=== PATIENT | female | born 1970 | race African-American/Black ===

== ENCOUNTER 2025-10-29 07:29 | Outpatient (CLI) | payer OTHER, SELFPAY ==
--- NOTE | ~2025-10-29 | MR_ITS ---
EXAMINATION: MR cervical spine wo con DATE: 10/29/2025 08:06 INDICATION: Neck pain. TECHNIQUE: Magnetic resonance imaging (MRI) of the cervical spine was performed without intravenous contrast. COMPARISON: Cervical spine radiographs 10/29/2025 FINDINGS: There is 4 degrees dextrocurvature of cervical spine. There is mild kyphosis of cervical spine. Vertebral body heights are normal. Intervertebral disc heights are normal. The spinal cord signal intensity is normal. The following disc levels are specifically discussed: C2-C3: The disc does not extend beyond the endplate margin. There is mild left uncovertebral joint osteoarthritis. There is mild bilateral facet joint osteoarthritis. There is mild left neural foraminal stenosis. There is no central canal stenosis. C3-C4: The disc does not extend beyond the endplate margin. There is mild left uncovertebral joint osteoarthritis. There is mild bilateral facet joint osteoarthritis. There is mild left neural foraminal stenosis. There is no central canal stenosis. C4-C5: The disc does not extend beyond the endplate margin. There is no uncovertebral joint osteoarthritis. There is mild bilateral facet joint osteoarthritis. There is no neural foraminal stenosis. There is no central canal stenosis. C5-C6: The disc is bulging. There is mild bilateral uncovertebral joint osteoarthritis. There is mild bilateral facet joint osteoarthritis. There is mild left neural foraminal stenosis. There is mild central canal stenosis. C6-C7: The disc is bulging. There is mild left uncovertebral joint osteoarthritis. There is mild bilateral facet joint osteoarthritis. There is no neural foraminal stenosis. There is mild central canal stenosis. C7-T1: The disc does not extend beyond the endplate margin. There is no uncovertebral joint osteoarthritis. There is mild bilateral facet joint osteoarthritis. There is no neural foraminal stenosis. There is no central canal stenosis. IMPRESSION: 1. Mild cervical spondylosis. Reviewed, dictated and finalized at location E. [facility]
--- NOTE | ~2025-10-29 | XR_ITS ---
XR cervical spine min 6V 10/29/2025 08:20 Indication: Neck pain Procedure: 8 views cervical spine Comparison: No prior studies for comparison. Findings: There is straightening of cervical lordosis in neutral position, possibly positional or due to muscle spasm. No fracture, subluxation or dislocation. No prevertebral soft tissue swelling. Odontoid process is normal. Lung apices are unremarkable. No alteration of alignment with flexion/extension. Impression: 1: No significant abnormality of the cervical spine. Reviewed, dictated and finalized at location O. N [facility]AIR Impression: 1: No significant abnormality of the cervical spine.
== END 2025-10-29 07:30 | disposition home or self-care (01) ==
LOC: MICIMG 07:31
DX: R20.2 Paresthesia of skin (principal); M47.892 Other spondylosis, cervical region
CPT/HCPCS: 72052; 72141